=== PATIENT | female | born 1945 | race Caucasian/White ===

== ENCOUNTER 2020-10-02 16:14 | Inpatient (IN) | payer MEDICARE ==
[~2020-10-02] VITALS: Ht 157.5 cm; Wt 128.4 kg
[2020-10-02 18:45] VITALS: BP 152/69
[2020-10-02] MEDS ORDERED: MAALOX 30 ML SUSP *UDC PO PRN (19:15)
[2020-10-02] MEDS ORDERED: MOM 30ML SUSPENSION UDC PO PRN (19:15)
[2020-10-02] MEDS ORDERED: CRAN400C PO (19:18)
[2020-10-02] MEDS ORDERED: PROBCAP14 PO (19:18)
[2020-10-02] MEDS ORDERED: PENT500C PO (19:18)
[2020-10-02] MEDS ORDERED: B-12100010 PO (19:18)
[2020-10-02] MEDS ORDERED: DOCU100C16 PO (19:18)
[2020-10-02] MEDS ORDERED: NITR100C2 PO (19:18)
[2020-10-02] MEDS ORDERED: ASPI81TA26 PO (19:18)
[2020-10-02] MEDS ORDERED: AMLO2.5T3 PO (19:18)
[2020-10-02] MEDS ORDERED: LEVO75TA4 PO (19:18)
[2020-10-02] MEDS ORDERED: IRBE150T7 PO (19:29)
[2020-10-02] MEDS ORDERED: ACET-683 PO (19:29)
[2020-10-02] MEDS ORDERED: B-121TAB3 PO (19:29)
--- NOTE | 2020-10-02 19:56 | HPEPDOC ---
[facility] Medical History & Physical Date of Admission Oct 02, 2020 Date of Service: Oct 02, 2020 History and Physical CHIEF COMPLAINT: Abdominal pain HISTORY OF PRESENT ILLNESS: This is a 75-year-old female history of hypothyroidism, hypertension, Crohn's was transferred from [place] due to abdominal pain and small bowel obstruction seen on CT imaging. Patient tells me that for 3 days she had diarrhea for which she took Imodium. Her diarrhea resolved and then she developed mild 2 out of 10 abdominal pain for which she started to take stool softeners she was at her physician's office and when she went home 2 days ago she noticed periumbilical mild nonradiating intermittent abdominal pain which she rates as 2 out of 10. She felt this was new for her and she presented to [place] emergency department complaining of abdominal pain. It [place] CT imaging was obtained and verbal read was endorsed to us as having small bowel obstruction with junctional point. [place] requested to transfer the patient was for evaluation by surgery. At the time evaluation patient denies any abdominal pain she is seen and bleeding freely around her room in no distress. She tells me she had a bowel movement p rior to presenting to [place] this morning and has been passing gas freely since. Patient will be admitted for observation. PAST MEDICAL/SURGICAL HISTORY: Suspected Crohn's disease although she tells me her physician is unsure and suspects there might be a component of ulcerative colitis given her family history of UC Hypertension Hypothyroidism Hemorrhoids Recurrent urinary tract infections Diverticulosis Tonsillectomy Hysterectomy SOCIAL HISTORY: Endorses alcohol use only socially a few times a year Denies tobacco use currently, states she quit over 15 years ago Denies illicit drug use FAMILY HISTORY: Her daughter was diagnosed with ulcerative colitis Mother had multiple GI issues but she cannot specify which ALLERGIES: Please see below. REVIEW OF SYSTEMS: 10 point review of systems complete all negative otherwise stated in HPI HOME MEDICATIONS: Please see below. PHYSICAL EXAMINATION: Constitutional: Awake and alert, in no apparent distress, she is morbidly obese ENT: Sclera are clear. Mucosa is moist. Respiratory: Lungs breath sounds are diminished bilaterally difficult to appreciate due to her large body habitus. No respiratory distress. Cardiovascular: Heart sounds appear to be regular in rate and rhythm murmurs are difficult to appreciate due to her large body habitus Gastrointestinal: Abdomen is soft, obese, non tender to palpation in all 4 quadrants to light and deep palpation, BS present. Musculoskeletal: No lower extremity edema. Neurologic: No focal neurological deficit. Mental Status: A&O x3, normal affect Skin: Warm, dry LABORATORY DATA: See below. IMAGING: See chart MICROBIOLOGY: Please see below. ASSESSMENT/PLAN 75-year-old female transferred from [place] due to SBO seen on CT associated with abdominal pain. At this time patient is passing gas and abdominal pain is resolved. She'll be admitted for observation to the medical service. # Abdominal pain: Patient was transferred here for management of SBO. Unfortunately the CT scan from [place] was not transferred with the patient, verbal read to accepting physician was that SBO was seen on CT with transition point. Try to obtain official CT read in the morning. I will hold off on repeating imaging for now as patient looks to have improved. Abdominal pain is resolved. She tells me she had a bowel movement in the morning passing gas gas. She is freely ambulate around her room in no distress. No need for NG tube. Nothing by mouth until she has a bowel movement. No need for surgical consult at this time. Bowel regiment. # ?Crhons: Continue mesalamine. Follow-up with PCP. # Hypertension: Continue home meds. Monitor and titrate # Hypothyroidism: resume Synthroid. # DVT prophylaxis: Heparin A [facility]ist Vital Signs Vital Signs Date Time Temp Pulse Resp B/P (MAP) Pulse Ox O2 Delivery O2 Flow Rate FiO2 10/02/20 18:45 98.1 77 19 152/69 (96) 99 Nasal Cannula 2.0 Home Medications Scheduled Amlodipine Besylate (Amlodipine Besylate) 2.5 Mg Tablet, 2.5 MG PO BID Aspirin (Aspirin EC) 81 Mg Tablet.dr, 81 MG PO QHS Cranberry (Cranberry) 400 Mg Capsule, 400 MG PO BID Cyanocobalamin (Vitamin B-12) (B-12) 500 Mcg Tablet, 500 MCG PO QHS Docusate Sodium (Docusate Sodium) 100 Mg Capsule, 200 MG PO BID supper and bedtime Irbesartan (Irbesartan) 150 Mg Tablet, 150 MG PO QPM Lactobacillus Acidophilus (Probiotic) 1 Each Capsule, 1 CAP PO DAILY Levothyroxine Sodium (Levothyroxine Sodium) 75 Mcg Tablet, 75 MCG PO QAM Mesalamine (Pentasa) 500 Mg Capsule.er, 500 MG PO 3XW sun,wed,sun Nitrofurantoin Monohyd/M-Cryst (Nitrofurantoin [place]-Mcr 100 mg) 100 Mg Capsule, 100 MG PO 2XW sun,th Scheduled PRN Acetaminophen (Acetaminophen) 500 Mg Tablet, 1,000 MG PO BID PRN for PAIN Allergies Coded Allergies: TAPE (Verified Allergy, Intermediate, BREAKS OUT, 08/04/05) A-FIB/CHADSVASC A-FIB History Current/History of A-Fib/PAF?: No PRADEEP MOJICA MD Oct 02, 2020 19:56
[2020-10-02 19:58] VITALS: BP 150/87
[2020-10-02 19:58] LABS: HEMATOCRIT 43.7 % (36.0-47.0); HEMOGLOBIN 13.8 g/dl (12.0-15.5); MEAN CORPUSCULAR HEMOGLOBIN 29.9 pg (27.0-33.0); MEAN CORPUSCULAR HGB CONC 31.6 g/dl (32.0-36.5); MEAN CORPUSCULAR VOLUME 94.6 fl (80.0-96.0); PLATELET COUNT, AUTOMATED 234 10^3/uL (150-450); RED BLOOD COUNT 4.62 10^6/uL (4.00-5.40); WHITE BLOOD COUNT 7.9 10^3/uL (4.0-10.0)
[2020-10-02 20:26] LABS: ALBUMIN 3.4 GM/DL (3.2-5.2); ALT/SGPT 20 U/L (12-78); BILIRUBIN,TOTAL 0.6 MG/DL (0.2-1.0); BLOOD UREA NITROGEN 14 MG/DL (7-18); CALCIUM LEVEL 8.3 MG/DL (8.8-10.2); CARBON DIOXIDE LEVEL 32 MEQ/L (21-32); CHLORIDE LEVEL 108 MEQ/L (98-107); GLOMERULAR FILTRATION RATE > 60.0 (>39); GLUCOSE, FASTING 107 MG/DL (70-100); POTASSIUM SERUM 4.3 MEQ/L (3.5-5.1); SODIUM LEVEL 142 MEQ/L (136-145); TOTAL PROTEIN 6.1 GM/DL (6.4-8.2)
[2020-10-02] MEDS: ASPIRIN 81MG ENTERIC TABLET PO SCH (20:51)
[2020-10-02] MEDS: DOCUSATE SODIUM 100MG CAPSULE PO SCH (20:51)
[2020-10-02] MEDS: IRBESARTAN 150MG TAB PO SCH (20:51)
[2020-10-02] MEDS ORDERED: DOCUSATE SODIUM 100MG CAPSULE PO SCH (21:00)
[2020-10-02] MEDS: HEPARIN SOD (PORCINE) 5000UNITS/ML 1ML VIAL/SYRINGE SC SCH (21:33)
[2020-10-02] MEDS: ACETAMINOPHEN TAB 650MG DOSE (2X325MG) PO PRN (22:35)
[2020-10-03] MEDS: LEVOTHYROXINE 75MCG TABLET (0.075MG) PO SCH (06:02)
[2020-10-03 06:20] VITALS: BP 108/46
[2020-10-03 06:45] LABS: HEMATOCRIT 41.8 % (36.0-47.0); HEMOGLOBIN 12.8 g/dl (12.0-15.5); MEAN CORPUSCULAR HEMOGLOBIN 29.6 pg (27.0-33.0); MEAN CORPUSCULAR HGB CONC 30.6 g/dl (32.0-36.5); MEAN CORPUSCULAR VOLUME 96.8 fl (80.0-96.0); PLATELET COUNT, AUTOMATED 207 10^3/uL (150-450); RED BLOOD COUNT 4.32 10^6/uL (4.00-5.40); WHITE BLOOD COUNT 6.5 10^3/uL (4.0-10.0)
[2020-10-03 07:12] LABS: ALT/SGPT 18 U/L (12-78); BILIRUBIN,TOTAL 0.9 MG/DL (0.2-1.0); BLOOD UREA NITROGEN 13 MG/DL (7-18); CALCIUM LEVEL 8.2 MG/DL (8.8-10.2); CARBON DIOXIDE LEVEL 34 MEQ/L (21-32); CHLORIDE LEVEL 109 MEQ/L (98-107); CREATININE FOR GFR 0.86 MG/DL (0.55-1.30); GLOMERULAR FILTRATION RATE > 60.0 (>39); GLUCOSE, FASTING 94 MG/DL (70-100); MAGNESIUM LEVEL 2.2 MG/DL (1.8-2.4); POTASSIUM SERUM 4.5 MEQ/L (3.5-5.1); SODIUM LEVEL 142 MEQ/L (136-145); TOTAL PROTEIN 5.9 GM/DL (6.4-8.2)
[2020-10-03] MEDS: HEPARIN SOD (PORCINE) 5000UNITS/ML 1ML VIAL/SYRINGE SC SCH ×2 (08:45→21:50)
[2020-10-03] MEDS ORDERED: MESALAMINE 250 MG CR CAP PO SCH (09:00)
[2020-10-03] MEDS: MIRALAX *UNIT DOSE* 17GM PACKET PO PRN ×2 (12:38→12:39)
[2020-10-03 14:00] VITALS: BP 138/82
[2020-10-03] MEDS: IRBESARTAN 150MG TAB PO SCH (18:07)
[2020-10-03] MEDS: DOCUSATE SODIUM 100MG CAPSULE PO SCH ×3 (18:07→21:54)
--- NOTE | 2020-10-03 19:39 | IPNPDOC ---
Subjective Date Seen The patient was seen on 10/03/20. Subjective Chief Complaint/HPI Mrs. Randolph is a 75 year old female with IBD who was transferred from [facility] for abdominal pain and SBO seen on CT imaging. While here, she has not had abdominal pain, but some abdominal tenderness. Denies chest pain or dyspnea. She tolerated a clear liquid diet and advanced to full liquids. She has had a bowel movement. Objective Physical Examination General Exam: Positive: Alert, Cooperative Eye Exam: Positive: EOMI; Negative: Sclera icteric Neck Exam: Positive: Supple Chest Exam: Positive: Diminished Heart Exam: Positive: Rate Normal, Regular Rhythm Abdomen Exam: Positive: Normal bowel sounds, Soft, Other (Obese) Extremity Exam: Positive: Edema Neuro Exam: Positive: Normal Speech, Cranial Nerves 3-12 NL Psych Exam: Positive: Mental status NL, Mood NL Assessment /Plan Assessment Mrs. Randolph is a 75 year old female with IBD who was transferred from [facility] for abdominal pain and SBO seen on CT imaging. Her abdominal pain resolved and is tolerated a clear liquid diet. She had a bowel movement as well. Will try on a regular diet. If she does well, possible discharge tomorrow. She should follow up with general surgery for the hernia. Plan/VTE VTE Prophylaxis Ordered?: Yes Plan 1. SBO -Resolved. No abdominal pain or nausea. Tolerating liquid diet and had bowel movement. -Try Regular diet -Continue Colace and PRN Miralax 2. IBD -Patient report's Crohn's disease. Continue mesalamine 3. Hypertension -Continue amlodipine and irbesartan 4. Hypothyroidism -Continue levothyroxine 5. DVT ppx -Heparin Disposition: If tolerates solid diet and continues to have BM tomorrow, possible discharge tomorrow. VS, I&O, 24H, Fishbone Vital Signs/I&O Vital Signs Date Time Temp Pulse Resp B/P (MAP) Pulse Ox O2 Delivery O2 Flow Rate FiO2 10/03/20 18:07 138/82 10/03/20 14:00 97.6 70 17 97 Nasal Cannula 1.0 I&O- Last 24 Hours up to 6 AM 10/03/20 06:00 Intake Total 0 ml Output Total 50 ml Balance -50 ml Laboratory Data 24H LABS Laboratory Tests 2 10/02/20 19:48: Nucleated Red Blood Cells % (auto) 0.0, Anion Gap 2L, Glomerular Filtration Rate > 60.0, Calcium Level 8.3L, Total Bilirubin 0.6, Aspartate Amino Transf (AST/SGOT) 17, Alanine Aminotransferase (ALT/SGPT) 20, Alkaline Phosphatase 97, Total Protein 6.1L, Albumin 3.4, Albumin/Globulin Ratio 1.3 10/03/20 06:28: Nucleated Red Blood Cells % (auto) 0.0, Anion Gap , Glomerular Filtration Rate > 60.0, Calcium Level 8.2L, Total Bilirubin 0.9, Aspartate Amino Transf (AST/SGOT) 16, Alanine Aminotransferase (ALT/SGPT) 18, Alkaline Phosphatase 81, Total P rotein 5.9L, Albumin 3.0L, Albumin/Globulin Ratio 1.0L, Magnesium Level 2.2 CBC/BMP Laboratory Tests 10/02/20 19:48 10/03/20 06:28 HAJA AMADOR DO Oct 03, 2020 19:39
[2020-10-03] MEDS: ASPIRIN 81MG ENTERIC TABLET PO SCH (21:50)
[2020-10-03 22:00] VITALS: BP 122/68
[2020-10-04] MEDS: ACETAMINOPHEN TAB 650MG DOSE (2X325MG) PO PRN ×2 (00:32→08:27)
[2020-10-04] MEDS: LEVOTHYROXINE 75MCG TABLET (0.075MG) PO SCH (05:58)
[2020-10-04 06:00] VITALS: BP 131/72
[2020-10-04] MEDS: HEPARIN SOD (PORCINE) 5000UNITS/ML 1ML VIAL/SYRINGE SC SCH (08:26)
[2020-10-04 08:27] VITALS: BP 133/71
[2020-10-04 08:31] LABS: HEMATOCRIT 41.3 % (36.0-47.0); HEMOGLOBIN 12.9 g/dl (12.0-15.5); MEAN CORPUSCULAR HEMOGLOBIN 30.1 pg (27.0-33.0); MEAN CORPUSCULAR HGB CONC 31.2 g/dl (32.0-36.5); MEAN CORPUSCULAR VOLUME 96.3 fl (80.0-96.0); PLATELET COUNT, AUTOMATED 200 10^3/uL (150-450); RED BLOOD COUNT 4.29 10^6/uL (4.00-5.40); WHITE BLOOD COUNT 5.4 10^3/uL (4.0-10.0)
[2020-10-04 08:54] LABS: BLOOD UREA NITROGEN 12 MG/DL (7-18); CALCIUM LEVEL 8.4 MG/DL (8.8-10.2); CARBON DIOXIDE LEVEL 35 MEQ/L (21-32); CHLORIDE LEVEL 105 MEQ/L (98-107); CREATININE FOR GFR 0.76 MG/DL (0.55-1.30); GLOMERULAR FILTRATION RATE > 60.0 (>39); GLUCOSE, FASTING 89 MG/DL (70-100); POTASSIUM SERUM 4.2 MEQ/L (3.5-5.1); SODIUM LEVEL 142 MEQ/L (136-145)
--- NOTE | 2020-10-04 22:43 | DS.PDOC ---
Discharge Summary General Date of Admission Oct 02, 2020 at 18:40 Date of Discharge Oct 04, 2020 Discharge Summary PROCEDURES PERFORMED DURING STAY: [None]. ADMITTING DIAGNOSES: 1. . DISCHARGE DIAGNOSES: 1. . COMPLICATIONS/CHIEF COMPLAINT: Partial Small Bowel Obstruction. HISTORY OF PRESENT ILLNESS: . HOSPITAL COURSE: . DISCHARGE MEDICATIONS: Please see below. ALLERGIES: Please see below. PHYSICAL EXAMINATION ON DISCHARGE: VITAL SIGNS: Please see below. GENERAL: HEENT: NECK: CARDIOVASCULAR EXAMINATION: RESPIRATORY EXAMINATION: ABDOMINAL EXAMINATION: EXTREMITIES: SKIN: NEUROLOGICAL EXAMINATION: PSYCHIATRIC EXAMINATION: LABORATORY DATA: Please see below. IMAGING: PROGNOSIS: ACTIVITY: [As tolerated]. DIET: DISCHARGE PLAN: DISPOSITION: Home, Self-Care. DISCHARGE INSTRUCTIONS: 1. . ITEMS TO FOLLOWUP ON ON OUTPATIENT: 1. . DISCHARGE CONDITION: [Stable]. TIME SPENT ON DISCHARGE: Greater than minutes. Vital Signs/I&Os Vital Signs Date Time Temp Pulse Resp B/P (MAP) Pulse Ox O2 Delivery O2 Flow Rate FiO2 10/04/20 08:27 65 133/71 10/04/20 06:00 98.5 18 96 Nasal Cannula 2.0 I&O- Last 24 Hours up to 6 AM 10/04/20 06:00 Intake Total 2440 ml Output Total 650 ml Balance 1790 ml Laboratory Data Labs 24H Laboratory Tests 2 10/04/20 08:06: Nucleated Red Blood Cells % (auto) 0.0, Anion Gap 2L, Glomerular Filtration Rate > 60.0, Calcium Level 8.4L CBC/BMP Laboratory Tests 10/04/20 08:06 Discharge Medications Scheduled Amlodipine Besylate (Amlodipine Besylate) 2.5 Mg Tablet, 2.5 MG PO BID, (Reported) Aspirin (Aspirin EC) 81 Mg Tablet.dr, 81 MG PO QHS, (Reported) Cranberry (Cranberry) 400 Mg Capsule, 400 MG PO BID, (Reported) Cyanocobalamin (Vitamin B-12) (B-12) 500 Mcg Tablet, 500 MCG PO QHS, (Reported) Docusate Sodium (Docusate Sodium) 100 Mg Capsule, 200 MG PO BID, (Reported) supper and bedtime Irbesartan (Irbesartan) 150 Mg Tablet, 150 MG PO QPM, (Reported) Lactobacillus Acidophilus (Probiotic) 1 Each Capsule, 1 CAP PO DAILY, (Reported) Levothyroxine Sodium (Levothyroxine Sodium) 75 Mcg Tablet, 75 MCG PO QAM, (Reported) Mesalamine (Pentasa) 500 Mg Capsule.er, 500 MG PO 3XW, (Reported) sun,sun,sun Nitrofurantoin Monohyd/M-Cryst (Nitrofurantoin [place]-Mcr 100 mg) 100 Mg Capsule, 100 MG PO 2XW, (Reported) sun, Scheduled PRN Acetaminophen (Acetaminophen) 500 Mg Tablet, 1,000 MG PO BID PRN for PAIN, (Reported) Allergies Coded Allergies: TAPE (Verified Allergy, Intermediate, BREAKS OUT, 08/04/05) HAJA AMADOR DO Oct 04, 2020 22:43
== END 2020-10-04 12:25 | disposition home or self-care (01) | DRG 390 ==
LOC: M MS5PR 18:40
PROVIDERS: ADMIT Internal Medicine; ATTEND Internal Medicine
DX: K56.609 Unspecified intestinal obstruction, unspecified as to partial versus complete obstruction (principal); Z79.82 Long term (current) use of aspirin; Z79.899 Other long term (current) drug therapy; E03.9 Hypothyroidism, unspecified; I10 Essential (primary) hypertension; K64.8 Other hemorrhoids; K57.30 Diverticulosis of large intestine without perforation or abscess without bleeding; Z87.891 Personal history of nicotine dependence

== ENCOUNTER 2020-10-25 10:53 | Inpatient (IN) | payer MEDICARE ==
[~2020-10-25] VITALS: Ht 157.5 cm; Wt 128.4 kg
[~2020-10-25 10:53] MED LIST: ACET-683 PO; AMLO2.5T3 PO; ASPI81TA26 PO; B-12100010 PO; B-121TAB3 PO; CRAN400C PO; DOCU100C16 PO; IRBE150T7 PO; LEVO75TA4 PO; NITR100C2 PO; PENT500C PO; PROBCAP14 PO
[2020-10-25 11:51] LABS: BASO # 0.1 10^3/uL (0.0-0.2); BASO % 0.8 % (0.0-1.0); EOS # 0.1 10^3/uL (0.0-0.5); HEMATOCRIT 45.7 % (36.0-47.0); HEMOGLOBIN 14.3 g/dl (12.0-15.5); LYMPH # 0.8 10^3/uL (1.5-5.0); LYMPH % 10.4 % (24.0-44.0); MEAN CORPUSCULAR HEMOGLOBIN 29.7 pg (27.0-33.0); MEAN CORPUSCULAR HGB CONC 31.3 g/dl (32.0-36.5); MEAN CORPUSCULAR VOLUME 94.8 fl (80.0-96.0); MONO # 0.4 10^3/uL (0.0-0.8); MONO % 4.8 % (2.0-8.0); NEUTROPHILS # 6.6 10^3/uL (1.5-8.5); NEUTROPHILS % 82.6 % (36.0-66.0); PLATELET COUNT, AUTOMATED 245 10^3/uL (150-450); RED BLOOD COUNT 4.82 10^6/uL (4.00-5.40)
[2020-10-25 12:09] LABS: INR 1.07; PROTHROMBIN TIME 14.1 SECONDS (12.5-14.3)
[2020-10-25 12:10] LABS: ALBUMIN 3.6 GM/DL (3.2-5.2); ALT/SGPT 20 U/L (12-78); BILIRUBIN,DIRECT 0.2 MG/DL (0.0-0.2); BILIRUBIN,TOTAL 0.7 MG/DL (0.2-1.0); LIPASE 71 U/L (73-393); PARTIAL THROMBOPLASTIN TIME 25.2 SECONDS (24.2-38.5); TOTAL PROTEIN 6.7 GM/DL (6.4-8.2)
[2020-10-25 12:46] LABS: CK-MB VALUE MASS 1.6 NG/ML (<3.6); CPK CREATINE PHOSPHOKINASE 84 U/L (26-192); TROPONIN I < 0.02 NG/ML (< 0.10)
[2020-10-25] MEDS: GASTROGRAFIN SOLUTION 30ML PO SCH ×2 (13:23→14:19)
[2020-10-25] MEDS ORDERED: ISOVUE-370 76% 100ML VIAL As Ordered ONE (14:08)
--- NOTE | 2020-10-25 15:44 | REP ---
INDICATION: upper abd pain hx Crohns COMPARISON: 04/13/2011. TECHNIQUE: CT Scan of the abdomen and pelvis was performed with intravenous administration of 100 cc of Isovue 370, and oral contrast. FINDINGS: Lung bases: There is mild bibasilar fibrotic scarring. There is a small hiatal hernia. Liver: Normal Gallbladder: Unremarkable. Spleen: Normal. Adrenals: There is chronic left adrenal gland thickening.. Pancreas: Normal. Kidneys: There is a 1 cm calculus in the right renal pelvis without evidence of there is an 8 mm nodule in the mid right kidney anteriorly consistent with an angiomyolipoma. Small and large bowel: There is umbilical hernia containing a loop of small bowel. There is edema surrounding the hernia sac. There is small-bowel obstruction at this point with moderate dilatation of the small bowel proximal to this. There is likely incarceration and I cannot exclude strangulation. There is no free air. There is sigmoid diverticulosis. Free fluid: There is mild scattered free fluid in the abdomen and pelvis. Abdominal aorta: No aneurysm or dissection. Adenopathy: None. Appendix: Not inflamed. Osseous structures: There are degenerative changes of the spine without compression deformity. Pelvis: No mass. Prior hysterectomy. IMPRESSION: Umbilical hernia containing a loop of small bowel, with small bowel obstruction at this level. There is likely incarceration of the small bowel loop and I cannot exclude strangulation, with moderate edema surrounding the hernia sac. Mild scattered free fluid. No free air. 1 cm calculus right renal pelvis. No hydronephrosis bilaterally. <Electronically signed by Zackary Martins > 10/25/20 [id number]
[2020-10-25] MEDS: NS 1,000 ML IV SCH (16:05)
[2020-10-25] MEDS ORDERED: POLYOPD OU (16:05)
[2020-10-25] MEDS ORDERED: FLON1SPR NARES (16:05)
--- NOTE | 2020-10-25 16:23 | HPEPDOC ---
[facility] Medical History & Physical Date of Admission October 25, 2020 Date of Service: October 25, 2020 History and Physical CHIEF COMPLAINT: Abdominal pain HISTORY OF PRESENT ILLNESS: 75F presents for one day history of worsening abd ominal pain. She was admitted about three weeks ago as a transfer from an outside facility for a SBO, which resolved with medical management. Today she describes epigastric pain, nausea, no vomiting, no diarrhea. PAST MEDICAL HISTORY: 1. Small bowel obstruction 2. Crohn's disease 3. Hypertension 4. Hypothyroidism ALLERGIES: Please see below. REVIEW OF SYSTEMS: Negative except as per HPI. HOME MEDICATIONS: Please see below. PHYSICAL EXAMINATION: VITAL SIGNS: Please see below. GENERAL: NAD, sitting comfortably at edge of bed HEENT: NC/AT, EOMI Lungs; CTA B/L Heart: +S1S2, RRR Abd: soft, obese, NT, hypoactive bowel sounds Ext: trace peripheral edema LABORATORY DATA: See below. MICROBIOLOGY: Please see below. A/P: 75 yo female for abdominal pain, found to have incarcerated small bowel obstruction. #SBO - case discussed with surgery by ED for further management - follow as per surgery #Crohn's disease - further complicated with SBO - follow as per surgery - home meds - pentasa 3 week; bactrim 2 x week #HTN - continue home meds - norvasc, avapro #Hypothyroidism - continue with oral supplementation #DVT prophylaxis - mechanical prophylaxis Vital Signs Vital Signs Date Time Temp Pulse Resp B/P (MAP) Pulse Ox O2 Delivery O2 Flow Rate FiO2 10/25/20 13:45 174/95 (121) 10/25/20 13:38 70 97 10/25/20 11:00 98.2 18 Laboratory Data Labs 24H Laboratory Tests 2 10/25/20 11:26: Immature Granulocyte % (Auto) 0.4, Neutrophils (%) (Auto) 82.6H, Lymphocytes (%) (Auto) 10.4L, Monocytes (%) (Auto) 4.8, Eosinophils (%) (Auto) 1.0, Basophils (%) (Auto) 0.8, Neutrophils # (Auto) 6.6, Lymphocytes # (Auto) 0.8L, Monocytes # (Auto) 0.4, Eosinophils # (Auto) 0.1, Basophils # (Auto) 0.1, Nucleated Red Blood Cells % (auto) 0.0, Prothrombin Time 14.1H, Prothromb Time International Ratio 1.07, Activated Partial Thromboplast Time 25.2, Lactic Acid Level 1.5, Total Bilirubin 0.7, Direct Bilirubin 0.2, Aspartate Amino Transf (AST/SGOT) 11, Alanine Aminotransferase (ALT/SGPT) 20, Alkaline Phosphatase 99, Total Creatine Kinase 84, Creatine Kinase MB 1.6, Creatine Kinase MB Relative Index 1.90, Troponin I < 0.02, Total Protein 6.7, Albumin 3.6, Albumin/Globulin Ratio 1.2, Lipase 71L 10/25/20 11:38: POC Glucose (Misc Panel) 108H, POC Sodium (Misc Panel) 142, POC Potassium (Misc Panel) 4.0, POC Chloride (Misc Panel) 104, POC Total CO2 (Misc Panel) 30.0H, POC Blood Urea Nitrogen (Misc Panel 20, POC Ionized Calcium (Misc Panel) 4.9, POC Creatinine (Misc Panel) 1.0, POC Hematocrit (Misc Panel) 44.0 CBC/BMP Laboratory Tests 10/25/20 11:26 Home Medications Scheduled Amlodipine Besylate (Amlodipine Besylate) 2.5 Mg Tablet, 2.5 MG PO BID Aspirin (Aspirin EC) 81 Mg Tablet.dr, 81 MG PO QHS Cranberry (Cranberry) 400 Mg Capsule, 400 MG PO BID Cyanocobalamin (Vitamin B-12) (B-12) 500 Mcg Tablet, 500 MCG PO DAILY Docusate Sodium (Docusate Sodium) 100 Mg Capsule, 200 MG PO BID supper and bedtime Fluticasone Propionate (Flonase Allergy Relief) 9.9 Ml [place].susp, 1 SPRAY [place]ARES QHS Irbesartan (Irbesartan) 150 Mg Tablet, 150 MG PO QPM Lactobacillus Acidophilus (Probiotic) 1 Each Capsule, 1 CAP PO DAILY Levothyroxine Sodium (Levothyroxine Sodium) 75 Mcg Tablet, 75 MCG PO QAM Mesalamine (Pentasa) 500 Mg Capsule.er, 500 MG PO 3XW sun,wed,fri Nitrofurantoin Monohyd/M-Cryst (Nitrofurantoin [place]-Mcr 100 mg) 100 Mg Capsule, 100 MG PO 2XW sun,thurs Scheduled PRN Acetaminophen (Acetaminophen) 500 Mg Tablet, 1,000 MG PO BID PRN for PAIN Polyvinyl Alcohol (Artificial Tears) 15 Ml Drops, 1 DROP OU QID PRN for DRY EYES Allergies Coded Allergies: TAPE (Verified Allergy, Intermediate, BREAKS OUT, 08/04/05) A-FIB/CHADSVASC A-FIB History Current/History of A-Fib/PAF?: No JORGE HILARIO MD October 25, 2020 16:23
[2020-10-25 19:15] LABS: RSV AMPLIFICATION NEGATIVE (NEGATIVE)
[2020-10-25] MEDS ORDERED: LABETALOL 100MG/20ML VIAL IV STA (19:34)
[2020-10-25] MEDS ORDERED: MORPHINE 2 MG/ML 1ML VIAL (J2270) IV ONE (19:35)
--- NOTE | 2020-10-25 19:45 | ECGEPIP ---
[facility] - ED Test Date: 2020-10-25 Pat Name: MICHAEL JORDAN Department: Room: - Gender: Female Ela Teacher: adelso : 1945 Requested By: PETE Calles Order Number: [id number] Reading MD: Pamela Ramsey Measurements Intervals [place] Rate: 64 P: -3 IN: 132 QRS: 1 QRSD: 84 T: 72 QT: 422 QTc: 435 Interpretive Statements Sinus rhythm with premature atrial complexes Nonspecific ST T wave changes Delayed R wave progression No prior ECG for comparison Electronically Signed on 10-25-2020 19:45:33 EDT by Pamela Ramsey
[2020-10-25] MEDS ORDERED: ONDANSETRON 4MG/2ML VIAL IV PRN (20:00)
[2020-10-25 20:03] LABS: BASO % 0.4 % (0.0-1.0); EOS # 0.1 10^3/uL (0.0-0.5); EOS % 0.6 % (0.0-3.0); HEMATOCRIT 48.4 % (36.0-47.0); HEMOGLOBIN 15.4 g/dl (12.0-15.5); LYMPH # 0.9 10^3/uL (1.5-5.0); LYMPH % 8.8 % (24.0-44.0); MEAN CORPUSCULAR HGB CONC 31.8 g/dl (32.0-36.5); MEAN CORPUSCULAR VOLUME 94.2 fl (80.0-96.0); MONO # 0.4 10^3/uL (0.0-0.8); MONO % 4.3 % (2.0-8.0); NEUTROPHILS # 8.7 10^3/uL (1.5-8.5); NEUTROPHILS % 85.5 % (36.0-66.0); PLATELET COUNT, AUTOMATED 258 10^3/uL (150-450); RED BLOOD COUNT 5.14 10^6/uL (4.00-5.40); WHITE BLOOD COUNT 10.2 10^3/uL (4.0-10.0)
[2020-10-25 20:30] LABS: ALBUMIN 3.7 GM/DL (3.2-5.2); ALT/SGPT 20 U/L (12-78); BILIRUBIN,TOTAL 0.8 MG/DL (0.2-1.0); BLOOD UREA NITROGEN 17 MG/DL (7-18); CALCIUM LEVEL 9.1 MG/DL (8.8-10.2); CARBON DIOXIDE LEVEL 31 MEQ/L (21-32); CHLORIDE LEVEL 107 MEQ/L (98-107); CREATININE FOR GFR 0.86 MG/DL (0.55-1.30); GLOMERULAR FILTRATION RATE > 60.0 (>39); GLUCOSE, FASTING 118 MG/DL (70-100); POTASSIUM SERUM 4.6 MEQ/L (3.5-5.1); SODIUM LEVEL 140 MEQ/L (136-145); TOTAL PROTEIN 6.7 GM/DL (6.4-8.2)
[2020-10-25] MEDS: DOCUSATE SODIUM 100MG CAPSULE PO SCH (21:00)
[2020-10-26] MEDS: ASPIRIN 81MG ENTERIC TABLET PO SCH ×2 (00:17→21:18)
[2020-10-26] MEDS: DOCUSATE SODIUM 100MG CAPSULE PO SCH ×3 (00:17→21:17)
[2020-10-26] MEDS: IRBESARTAN 150MG TAB PO SCH ×2 (00:17→17:37)
[2020-10-26] MEDS: FLUTICASONE PROP 0.05% NASAL SPRAY 16 GM (FLONASE) NARES SCH ×2 (00:18→21:18)
[2020-10-26] MEDS: NS 1,000 ML IV SCH ×3 (02:05→21:17)
[2020-10-26 06:49] LABS: HEMATOCRIT 45.5 % (36.0-47.0); HEMOGLOBIN 14.1 g/dl (12.0-15.5); MEAN CORPUSCULAR HEMOGLOBIN 30.1 pg (27.0-33.0); MEAN CORPUSCULAR VOLUME 97.2 fl (80.0-96.0); PLATELET COUNT, AUTOMATED 240 10^3/uL (150-450); RED BLOOD COUNT 4.68 10^6/uL (4.00-5.40); WHITE BLOOD COUNT 8.1 10^3/uL (4.0-10.0)
[2020-10-26 07:05] LABS: ALBUMIN 3.3 GM/DL (3.2-5.2); ALT/SGPT 19 U/L (12-78); BILIRUBIN,TOTAL 0.9 MG/DL (0.2-1.0); BLOOD UREA NITROGEN 15 MG/DL (7-18); CALCIUM LEVEL 8.7 MG/DL (8.8-10.2); CARBON DIOXIDE LEVEL 33 MEQ/L (21-32); CHLORIDE LEVEL 106 MEQ/L (98-107); CREATININE FOR GFR 0.81 MG/DL (0.55-1.30); GLOMERULAR FILTRATION RATE > 60.0 (>39); GLUCOSE, FASTING 104 MG/DL (70-100); POTASSIUM SERUM 4.4 MEQ/L (3.5-5.1); SODIUM LEVEL 142 MEQ/L (136-145); TOTAL PROTEIN 6.3 GM/DL (6.4-8.2)
[2020-10-26 08:00] VITALS: BP 176/70
[2020-10-26] MEDS: CYANOCOBALAMIN 500 MCG TAB PO SCH (09:22)
--- NOTE | 2020-10-26 09:22 | REP ---
INDICATION: upright, r/o free air COMPARISON: None. TECHNIQUE: PA/Lateral FINDINGS: Lungs: Clear, no infiltrate. Heart: Normal in size. Mediastinum: There is calcification of the thoracic aorta. Pleural angles: Unremarkable.. Bones and soft tissues: There is osteopenia with mild degenerative change of the spine. A nasogastric tube traverses into the stomach. IMPRESSION: No acute pulmonary disease. <Electronically signed by Zackary Martins > 10/26/20 0918
[2020-10-26] MEDS: LEVOTHYROXINE 75MCG TABLET (0.075MG) PO SCH (09:25)
[2020-10-26] MEDS ORDERED: CALCIUM CARBONATE 500 MG CHEW U/D PO PRN (09:35)
[2020-10-26] MEDS: PANTOPRAZOLE 40MG VIAL (C9113 PER 1) IV SCH (10:02)
[2020-10-26 12:07] VITALS: BP 158/78
--- NOTE | 2020-10-26 12:47 | CR.PDOC ---
General Surgery Consultation Date of Consultation 10/26/20 History and Physical General Surgery. Dr Lu. HISTORY OF PRESENT ILLNESS: The patient is a 75 old female with recent admission for SBO 10/02/20 which resolved with medical management, who presented to the emergency room reporting a 1 day history of worsening abdominal pain. She reports having pain across the upper abdomen associated with nausea, denies any vomiting. Reports no diarrhea. Reports having a small bowel movement yesterday. None so far today. General surgery is consulted for management of SBO. PAST MEDICAL HISTORY: H/O Small bowel obstruction with recent admission 10/02/20 Crohn's disease, follows with [facility]. Hypertension Hypothyroidism Hemorrhoids Recurrent UTI Diverticulosis PAST SURGICAL HISTORY: Tonsillectomy Hysterectomy ALLERGIES: Please see below. Social history. Former smoker REVIEW OF SYSTEMS: As noted in HPI otherwise 10 point review of systems unremarkable. PHYSICAL EXAMINATION: VITALS SIGNS: Please see below. GENERAL APPEARANCE: Lying on stretcher in ER, no acute distress. HEENT: Normocephalic, atraumatic. NG tube in place. NECK: Supple, no thyromegaly. LUNGS: Clear to auscultation bilaterally. No wheezing appreciated. HEART: Regular rate and rhythm with no murmurs appreciated. ABDOMEN: Abdomen is obese with large umbilical hernia, soft, generally distended with mild tenderness across the upper abdomen, no guarding, no rebound. No grimacing with palpation. EXTREMITIES: trace edema LEs LABORATORY DATA: Please see below. IMAGING STUDIES: IMPRESSION: Umbilical hernia containing a loop of small bowel, with small bowel obstruction at this level. There is likely incarceration of the small bowel loop and I cannot exclude strangulation, with moderate edema surrounding the hernia sac. Mild scattered free fluid. No free air. 1 cm calculus right renal pelvis. No hydronephrosis bilaterally. <Electronically signed by Zackary Martins > 10/25/20 1540 IMPRESSION AND PLAN: Large Umbilical hernia with SBO. Patient is reviewed and examined as per Dr. Lu. No surgical intervention planned at this time, will continue with supportive care. The patient is currently comfortable and states pain is controlled. Continue NPO. Continue NGT LIS. Continue IVF. Monitor. Vital Signs Vital Signs Date Time Temp Pulse Resp B/P (MAP) Pulse Ox O2 Delivery O2 Flow Rate FiO2 10/26/20 12:07 96.2 61 22 158/78 (104) 99 Nasal Cannula 2.0 I&Os I&O- Last 24 Hours up to 6 AM 10/26/20 06:00 Intake Total 1000 ml Balance 1000 ml Laboratory Data Labs 24H Laboratory Tests 2 10/25/20 18:24: Coronavirus (COVID-19)(PCR) NEGATIVE, Influenza Type A (RT-PCR) NEGATIVE, Influenza Type B (RT-PCR) NEGATIVE, Respiratory Syncytial Virus (PCR) NEGATIVE 10/25/20 19:49: Immature Granulocyte % (Auto) 0.4, Neutrophils (%) (Auto) 85.5H, Lymphocytes (%) (Auto) 8.8L, Monocytes (%) (Auto) 4.3, Eosinophils (%) (Auto) 0.6, Basophils (%) (Auto) 0.4, Neutrophils # (Auto) 8.7H, Lymphocytes # (Auto) 0.9L, Monocytes # (Auto) 0.4, Eosinophils # (Auto) 0.1, Basophils # (Auto) 0.0, Nucleated Red Blood Cells % (auto) 0.0, Anion Gap 2L, Glomerular Filtration Rate > 60.0, Lactic Acid Level 0.9, Calcium Level 9.1, Total Bilirubin 0.8, Aspartate Amino Transf (AST/SGOT) 13, Alanine Aminotransferase (ALT/SGPT) 20, Alkaline Phosphatase 100, Total Protein 6.7, Albumin 3.7, Albumin/Globulin Ratio 1.2 10/26/20 06:29: Nucleated Red Blood Cells % (auto) 0.0, Anion Gap 3L, Glomerular Filtration Rate > 60.0, Calcium Level 8.7L, Total Bilirubin 0.9, Aspartate Amino Transf (AST/SGOT) 12, Alanine Aminotransferase (ALT/SGPT) 19, Alkaline Phosphatase 81, Total Protein 6.3L, Albumin 3.3, Albumin/Globulin Ratio 1.1L CBC/BMP Laboratory Tests 10/25/20 19:49 10/26/20 06:29 Home Medications Scheduled Amlodipine Besylate (Amlodipine Besylate) 2.5 Mg Tablet, 2.5 MG PO BID, ( Reported) Aspirin (Aspirin EC) 81 Mg Tablet.dr, 81 MG PO QHS, (Reported) Cranberry (Cranberry) 400 Mg Capsule, 400 MG PO BID, (Reported) Cyanocobalamin (Vitamin B-12) (B-12) 500 Mcg Tablet, 500 MCG PO DAILY, (Reported) Docusate Sodium (Docusate Sodium) 100 Mg Capsule, 200 MG PO BID, (Reported) supper and bedtime Fluticasone Propionate (Flonase Allergy Relief) 9.9 Ml [place].susp, 1 SPRAY [place]ARES QHS, (Reported) Irbesartan (Irbesartan) 150 Mg Tablet, 150 MG PO QPM, (Reported) Lactobacillus Acidophilus (Probiotic) 1 Each Capsule, 1 CAP PO DAILY, (Reported) Levothyroxine Sodium (Levothyroxine Sodium) 75 Mcg Tablet, 75 MCG PO QAM, (Reported) Mesalamine (Pentasa) 500 Mg Capsule.er, 500 MG PO 3XW, (Reported) sun,sun,sun Nitrofurantoin Monohyd/M-Cryst (Nitrofurantoin [place]-Mcr 100 mg) 100 Mg Capsule, 100 MG PO 2XW, (Reported) sun, Scheduled PRN Acetaminophen (Acetaminophen) 500 Mg Tablet, 1,000 MG PO BID PRN for PAIN, (Reported) Polyvinyl Alcohol (Artificial Tears) 15 Ml Drops, 1 DROP OU QID PRN for DRY EYES, (Reported) Allergies Coded Allergies: TAPE (Verified Allergy, Intermediate, BREAKS OUT, 08/04/05) Kisha Valdez October 26, 2020 12:47
[2020-10-26 13:00] VITALS: BP 154/79
[2020-10-26 22:00] VITALS: BP 151/82
--- NOTE | 2020-10-26 22:36 | IPNPDOC ---
Subjective Date Seen The patient was seen on 10/26/20. Subjective Chief Complaint/HPI Mrs. Randolph is a 75 year old female with Crohn's disease and history of SBO who presents with SBO. She was seen this morning in the ED. Denies chest pain, but reports abdominal pain that has improved since prior. NGT still in place. General surgery following and recommendations appreciated. Objective Physical Examination General Exam: Positive: Alert, Cooperative Eye Exam: Negative: Sclera icteric ENT Exam: Positive: Other ENT (NTG in place) Neck Exam: Positive: Supple Chest Exam: Positive: Clear to auscultation Heart Exam: Positive: Rate Normal, Regular Rhythm Abdomen Exam: Positive: BS Hypoactive, Soft, Tenderness Extremity Exam: Positive: Edema (trace) Neuro Exam: Positive: Normal Speech Psych Exam: Positive: Mental status NL, Mood NL Assessment /Plan Assessment Mrs. Randolph is a 75 year old female with Crohn's disease and history of SBO who presents with SBO. General surgery following, recommendations appreciated. Continue with NGT at this time. Plan/VTE VTE Prophylaxis Ordered?: Yes Plan 1. Small bowel obstruction -Imaging demonstrated umbilical hernia continuing a loop of small bowel -General surgery following, recommendations appreciated -Continue with NTG 2. Crohn's disease -Continue with Pentasa and Nitrofurantoin x2 a week -Will check inflammatory markers 3. Hypertension -Continue with amlodipine and irbesartan 4. Hypothyroidism -Continue with levothyroxine 5. DVT ppx -SCD and TEDs Disposition: pending clinical improvement VS, I&O, 24H, Fishbone Vital Signs/I&O Vital Signs Date Time Temp Pulse Resp B/P (MAP) Pulse Ox O2 Delivery O2 Flow Rate FiO2 10/26/20 22:00 98.4 62 18 151/82 (105) 97 Nasal Cannula 2.0 I&O- Last 24 Hours up to 6 AM 10/26/20 06:00 Intake Total 1000 ml Balance 1000 ml Laboratory Data 24H LABS Laboratory Tests 2 10/26/20 06:29: Nucleated Red Blood Cells % (auto) 0.0, Anion Gap 3L, Glomerular Filtration Rate > 60.0, Calcium Level 8.7L, Total Bilirubin 0.9, Aspartate Amino Transf (AST/SGOT) 12, Alanine Aminotransferase (ALT/SGPT) 19, Alkaline Phosphatase 81, Total Protein 6.3L, Albumin 3.3, Albumin/Globulin Ratio 1.1L CBC/BMP Laboratory Tests 10/26/20 06:29 HAJA AMADOR DO October 26, 2020 22:36
[2020-10-27] MEDS: LEVOTHYROXINE 75MCG TABLET (0.075MG) PO SCH (05:02)
[2020-10-27] MEDS: NS 1,000 ML IV SCH ×3 (05:03→22:12)
[2020-10-27 06:00] VITALS: BP 139/68
[2020-10-27 06:53] LABS: HEMATOCRIT 43.1 % (36.0-47.0); HEMOGLOBIN 13.3 g/dl (12.0-15.5); MEAN CORPUSCULAR HEMOGLOBIN 30.3 pg (27.0-33.0); MEAN CORPUSCULAR HGB CONC 30.9 g/dl (32.0-36.5); MEAN CORPUSCULAR VOLUME 98.2 fl (80.0-96.0); PLATELET COUNT, AUTOMATED 207 10^3/uL (150-450); RED BLOOD COUNT 4.39 10^6/uL (4.00-5.40)
[2020-10-27 07:20] LABS: ERYTHROCYTE SEDIMENTATION RATE 6 mm/hr (0-30)
[2020-10-27 07:22] LABS: BLOOD UREA NITROGEN 10 MG/DL (7-18); C REACTIVE PROTEIN QUANTITATIV 2.79 MG/DL (0.00-0.30); CARBON DIOXIDE LEVEL 33 MEQ/L (21-32); CHLORIDE LEVEL 107 MEQ/L (98-107); CREATININE FOR GFR 0.66 MG/DL (0.55-1.30); GLOMERULAR FILTRATION RATE > 60.0 (>39); GLUCOSE, FASTING 83 MG/DL (70-100); SODIUM LEVEL 142 MEQ/L (136-145)
--- NOTE | 2020-10-27 09:38 | IPNPDOC ---
Text Note Date of Service The patient was seen on 10/27/20. NOTE General Surgery. Dr Lu. The patient is a 75 old female with recent admission for SBO 10/02/20 which resolved with medical management, who presented to the emergency room with worsening abdominal pain and admitted with recurrent SBO. This a.m., the patient states she is still feeling bloated, she still has some pain around the mid abdomen area about the same as yesterday. She reports no nausea, denies any flatus. States she had a small bowel movement last evening. Afebrile, vital signs stable. Resting in bed, no acute distress. NG tube in place. LUNGS: Clear to auscultation bilaterally. No wheezing appreciated. HEART: Regular rate and rhythm with no murmurs appreciated. ABDOMEN: Abdomen is obese with large umbilical hernia which is difficult to tell if this is reduced, remains generally distended with tenderness over the hernia area, no guarding, no rebound. EXTREMITIES: trace edema LEs LABORATORY DATA: Please see below. IMPRESSION AND PLAN: Large Umbilical hernia with SBO. Patient is reviewed and examined as per Dr. Escalona this morning. Continue NPO. Continue NGT LIS. Continue IVF. Plan is for CT abdomen/pelvis without contrast to reevaluate this morning, further recommendations pending review of imaging as per Dr. Escalona. Monitor. VS,Fishbone, I+O VS, Fishbone, I+O Laboratory Tests 10/27/20 06:13 Vital Signs Date Time Temp Pulse Resp B/P (MAP) Pulse Ox O2 Delivery O2 Flow Rate FiO2 10/27/20 06:00 98.5 70 18 139/68 (91) 98 Nasal Cannula 2.0 I&O- Last 24 Hours up to 6 AM 10/27/20 06:00 Intake Total 600 ml Output Total 1650 ml Balance -1050 ml Kisha Valdez October 27, 2020 09:38
[2020-10-27] MEDS: PANTOPRAZOLE 40MG VIAL (C9113 PER 1) IV SCH (10:07)
[2020-10-27] MEDS: CYANOCOBALAMIN 500 MCG TAB PO SCH (10:07)
[2020-10-27] MEDS: MESALAMINE 250 MG CR CAP PO SCH (10:07)
--- NOTE | 2020-10-27 10:08 | REP ---
INDICATION: SBO COMPARISON: 10/25/2020. TECHNIQUE: CT Scan of the abdomen and pelvis was performed without intravenous contrast. Sagittal and coronal reconstruction images performed. 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 Liver: Grossly unremarkable. Gallbladder: Unremarkable. Spleen: Grossly unremarkable. Adrenals: There is again left renal gland thickening noted. Pancreas: Grossly unremarkable.. Kidneys: A 1 cm calculus is again seen in the right renal pelvis. 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 Small and large bowel: Umbilical hernias again noted containing a small bowel loop which is thickened. There is diffuse edema within the hernia sac. There is mild dilatation of the more proximal small bowel which has improved and decreased in caliber compared to the prior study. There is diffuse thickening of the distal ileum with associated mesenteric edema in this region. Sigmoid diverticulosis is again noted. A nasogastric tube is seen in a collapsed stomach. There is no free air. Free fluid: There is mild free fluid in the abdomen surrounding the liver and spleen. Abdominal aorta: No aneurysm. Adenopathy: None. Appendix: Not inflamed. Osseous structures: There are degenerative changes of the spine without compression deformity.. Pelvis: No mass. Prior hysterectomy. IMPRESSION: Umbilical hernia again contains a small bowel loop, with moderate edema within the hernia sac. There is diffuse nonspecific thickening of the distal ileum. There is associated mesenteric edema in this region. There is still mild dilatation of the more proximal small bowel with this has improved since the prior study. Mild free fluid around the liver and spleen. No free air. <Electronically signed by Zackary Martins > 10/27/20 1004
[2020-10-27 14:00] VITALS: BP 109/68
[2020-10-27] MEDS: NITROFURANTOIN (MACROBID) 100 MG CAP PO SCH (18:06)
[2020-10-27] MEDS: DOCUSATE SODIUM 100MG CAPSULE PO SCH ×2 (18:06→22:11)
[2020-10-27] MEDS: IRBESARTAN 150MG TAB PO SCH (18:13)
--- NOTE | 2020-10-27 20:46 | IPNPDOC ---
Subjective Date Seen The patient was seen on 10/27/20. Subjective Chief Complaint/HPI Mrs. Randolph is a 75 year old female with Crohn's disease and history of SBO who presents with SBO. She was seen in the morning. NGT was still in place at that time. She still has abdominal tenderness, but improved abdominal pain. Objective Physical Examination General Exam: Positive: Alert, Cooperative Eye Exam: Negative: Sclera icteric ENT Exam: Positive: Other ENT (NTG in place) Neck Exam: Positive: Supple Chest Exam: Positive: Clear to auscultation Heart Exam: Positive: Rate Normal, Regular Rhythm Abdomen Exam: Positive: BS Hypoactive, Soft, Tenderness Extremity Exam: Positive: Edema (trace) Neuro Exam: Positive: Normal Speech Psych Exam: Positive: Mental status NL, Mood NL Assessment /Plan Assessment Mrs. Randolph is a 75 year old female with Crohn's disease and history of SBO who presents with SBO. General surgery following, recommendations appreciated. Continue with NGT at this time. Plan/VTE VTE Prophylaxis Ordered?: Yes Plan 1. Small bowel obstruction -Imaging demonstrated umbilical hernia continuing a loop of small bowel -General surgery following, recommendations appreciated -Continue with NTG 2. Crohn's disease -Continue with Pentasa and Nitrofurantoin x2 a week -ESR not elevated, CRP mildly elevated at 2.79, unlikely to be in flare 3. Hypertension -Continue with amlodipine and irbesartan 4. Hypothyroidism -Continue with levothyroxine 5. DVT ppx -SCD and TEDs Disposition: pending clinical improvement and general surgery recommendations VS, I&O, 24H, Eulaliobone Vital Signs/I&O Vital Signs Date Time Temp Pulse Resp B/P (MAP) Pulse Ox O2 Delivery O2 Flow Rate FiO2 10/27/20 18:13 161/81 10/27/20 14:00 98.4 83 20 91 Nasal Cannula 2.0 I&O- Last 24 Hours up to 6 AM 10/27/20 06:00 Intake Total 600 ml Output Total 1650 ml Balance -1050 ml Laboratory Data 24H LABS Laboratory Tests 2 10/27/20 06:13: Nucleated Red Blood Cells % (auto) 0.0, Erythrocyte Sedimentation Rate 6, Anion Gap 2L, Glomerular Filtration Rate > 60.0, Calcium Level 8.0L, C-Reactive Protein, Quantitative 2.79H CBC/BMP Laboratory Tests 10/27/20 06:13 HAJA AMADOR DO October 27, 2020 20:46
[2020-10-27 22:00] VITALS: BP 150/77
[2020-10-27] MEDS: ACETAMINOPHEN 500 MG TAB PO PRN (22:11)
[2020-10-27] MEDS: ASPIRIN 81MG ENTERIC TABLET PO SCH (22:11)
[2020-10-27] MEDS: FLUTICASONE PROP 0.05% NASAL SPRAY 16 GM (FLONASE) NARES SCH (22:12)
[2020-10-28] MEDS: LEVOTHYROXINE 75MCG TABLET (0.075MG) PO SCH (05:55)
[2020-10-28 06:00] VITALS: BP 166/85
[2020-10-28 06:48] LABS: HEMATOCRIT 41.5 % (36.0-47.0); HEMOGLOBIN 12.7 g/dl (12.0-15.5); MEAN CORPUSCULAR HEMOGLOBIN 29.5 pg (27.0-33.0); MEAN CORPUSCULAR HGB CONC 30.6 g/dl (32.0-36.5); MEAN CORPUSCULAR VOLUME 96.5 fl (80.0-96.0); PLATELET COUNT, AUTOMATED 199 10^3/uL (150-450); WHITE BLOOD COUNT 6.5 10^3/uL (4.0-10.0)
[2020-10-28 07:15] LABS: BLOOD UREA NITROGEN 8 MG/DL (7-18); CALCIUM LEVEL 8.4 MG/DL (8.8-10.2); CARBON DIOXIDE LEVEL 32 MEQ/L (21-32); CHLORIDE LEVEL 107 MEQ/L (98-107); CREATININE FOR GFR 0.71 MG/DL (0.55-1.30); GLOMERULAR FILTRATION RATE > 60.0 (>39); GLUCOSE, FASTING 74 MG/DL (70-100); SODIUM LEVEL 143 MEQ/L (136-145)
[2020-10-28] MEDS: PANTOPRAZOLE 40MG VIAL (C9113 PER 1) IV SCH (08:20)
[2020-10-28 08:30] VITALS: BP 130/86
[2020-10-28] MEDS: CYANOCOBALAMIN 500 MCG TAB PO SCH (10:31)
[2020-10-28] MEDS: POLYVINYL ALCOHOL OPHTH SOLN 15 ML(LIQUITEARS) OU PRN ×2 (10:40→21:13)
[2020-10-28 14:00] VITALS: BP 149/88
[2020-10-28] MEDS: NS 1,000 ML IV SCH (14:13)
--- NOTE | 2020-10-28 14:52 | IPNPDOC ---
Subjective Date Seen The patient was seen on 10/28/20. Subjective Chief Complaint/HPI Mrs. Randolph is a 75 year old female with Crohn's disease and history of SBO who presents with SBO. This morning, NGT was in place. Abdominal pain and tenderness improved. Objective Physical Examination General Exam: Positive: Alert, Cooperative Eye Exam: Negative: Sclera icteric ENT Exam: Positive: Other ENT (NTG in place) Neck Exam: Positive: Supple Chest Exam: Positive: Clear to auscultation Heart Exam: Positive: Rate Normal, Regular Rhythm Abdomen Exam: Positive: BS Hypoactive, Soft, Tenderness Extremity Exam: Positive: Edema (trace) Neuro Exam: Positive: Normal Speech Psych Exam: Positive: Mental status NL, Mood NL Assessment /Plan Assessment Mrs. Randolph is a 75 year old female with Crohn's disease and history of SBO who presents with SBO. General surgery following, recommendations appreciated. Continue with NGT at this time. Plan/VTE VTE Prophylaxis Ordered?: Yes Plan 1. Small bowel obstruction possible secondary to hernia -Imaging demonstrated umbilical hernia continuing a loop of small bowel -General surgery following, recommendations appreciated -Continue with NTG 2. Crohn's disease -Continue with Pentasa and Nitrofurantoin x2 a week -ESR not elevated, CRP mildly elevated at 2.79, unlikely to be in flare 3. Hypertension -Continue with amlodipine and irbesartan 4. Hypothyroidism -Continue with levothyroxine 5. Morbid obesity -BMI 51.8 -Complicates care 6. DVT ppx -SCD and TEDs Disposition: pending clinical improvement and general surgery recommendations VS, I&O, 24H, Fishbone Vital Signs/I&O Vital Signs Date Time Temp Pulse Resp B/P (MAP) Pulse Ox O2 Delivery O2 Flow Rate FiO2 10/28/20 10:30 68 130/86 10/28/20 08:50 2.0 10/28/20 08:30 98.2 16 96 Nasal Cannula I&O- Last 24 Hours up to 6 AM 10/28/20 06:00 Intake Total 1000 ml Output Total 1300 ml Balance -300 ml Laboratory Data 24H LABS Laboratory Tests 2 10/28/20 06:34: Nucleated Red Blood Cells % (auto) 0.0, Anion Gap 4L, Glomerular Filtration Rate > 60.0, Calcium Level 8.4L CBC/BMP Laboratory Tests 10/28/20 06:34 HAJA AMADOR DO October 28, 2020 14:52
[2020-10-28] MEDS: DOCUSATE SODIUM 100MG CAPSULE PO SCH ×2 (17:20→21:04)
[2020-10-28] MEDS: NITROFURANTOIN (MACROBID) 100 MG CAP PO SCH (17:20)
[2020-10-28] MEDS: IRBESARTAN 150MG TAB PO SCH (17:20)
[2020-10-28 20:39] VITALS: BP 179/87
[2020-10-28] MEDS: FLUTICASONE PROP 0.05% NASAL SPRAY 16 GM (FLONASE) NARES SCH (21:00)
[2020-10-28] MEDS: ACETAMINOPHEN 500 MG TAB PO PRN (21:04)
[2020-10-28] MEDS: ASPIRIN 81MG ENTERIC TABLET PO SCH (21:05)
--- NOTE | 2020-10-28 22:06 | IPNPDOC ---
Text Note Date of Service The patient was seen on 10/28/20. NOTE No acute events overnight. She did have a small BM, but her hernia is still fi rm, and NG output is high. No signs of improvement at this point. VSSAF NAD ABD - soft, TTP periumbilically only, there is a nonreducible umbilical hernia labs - below A) 75y/o female with a nonreducible umbilical hernia P) NPO NGT to OR in the AM for incarcerated umbilical hernia repair Parvez Lu DO VS,Kelly, I+O VS, Kelly, I+O Laboratory Tests 10/28/20 06:34 Vital Signs Date Time Temp Pulse Resp B/P (MAP) Pulse Ox O2 Delivery O2 Flow Rate FiO2 10/28/20 21:13 2.0 10/28/20 21:05 82 179/87 10/28/20 20:39 97.6 20 89 Room Air I&O- Last 24 Hours up to 6 AM 10/28/20 06:00 Intake Total 1000 ml Output Total 1300 ml Balance -300 ml ERICKSON LU DO October 28, 2020 22:06
[2020-10-29] VITALS (11 sets, daily range): BP systolic 144–161; BP diastolic 73–82; O2SAT 95
[2020-10-29] MEDS: NS 1,000 ML IV SCH (00:06)
[2020-10-29] MEDS: LEVOTHYROXINE 75MCG TABLET (0.075MG) PO SCH (05:21)
[2020-10-29 05:53] LABS: HEMATOCRIT 39.4 % (36.0-47.0); HEMOGLOBIN 12.1 g/dl (12.0-15.5); MEAN CORPUSCULAR HEMOGLOBIN 29.5 pg (27.0-33.0); MEAN CORPUSCULAR HGB CONC 30.7 g/dl (32.0-36.5); MEAN CORPUSCULAR VOLUME 96.1 fl (80.0-96.0); PLATELET COUNT, AUTOMATED 198 10^3/uL (150-450); WHITE BLOOD COUNT 5.6 10^3/uL (4.0-10.0)
[2020-10-29 06:11] LABS: BLOOD UREA NITROGEN 9 MG/DL (7-18); CALCIUM LEVEL 8.2 MG/DL (8.8-10.2); CARBON DIOXIDE LEVEL 31 MEQ/L (21-32); CHLORIDE LEVEL 107 MEQ/L (98-107); CREATININE FOR GFR 0.61 MG/DL (0.55-1.30); GLOMERULAR FILTRATION RATE > 60.0 (>39); GLUCOSE, FASTING 65 MG/DL (70-100); POTASSIUM SERUM 3.7 MEQ/L (3.5-5.1); SODIUM LEVEL 143 MEQ/L (136-145)
[2020-10-29] MEDS ORDERED: DEXTROSE 50% 50 ML SYRINGE IV STA (06:30)
[2020-10-29] MEDS ORDERED: SEVOFLURANE INHAL SOLN 250 ML BTL As Ordered ONE (07:04)
[2020-10-29] MEDS ORDERED: ROCURONIUM BROMIDE 50 MG/5 ML VIAL As Ordered ONE ×2 (07:11→09:04)
[2020-10-29] MEDS ORDERED: LIDOCAINE 2% 100MG/5ML SDV (FOR ANES.) As Ordered ONE (07:11)
[2020-10-29] MEDS ORDERED: propofoL 200 MG/20 ML VIAL As Ordered ONE ×2 (07:11→09:15)
[2020-10-29] MEDS ORDERED: fentaNYL 100 MCG/2 ML INJECTION (J3010) As Ordered ONE ×2 (07:12→08:04)
[2020-10-29] MEDS ORDERED: dexameTHASONE 4 MG/ML 1ML VIAL (J1100 PER 1MG) As Ordered ONE (07:12)
[2020-10-29] MEDS ORDERED: ONDANSETRON 4MG/2ML VIAL As Ordered ONE (07:12)
[2020-10-29] MEDS ORDERED: MIDAZOLAM INJ 2MG/2ML VIAL (J2250 PER 1MG) As Ordered ONE (07:12)
[2020-10-29] MEDS ORDERED: BUPIVACAINE/EPIN 0.25% 30 ML VIAL As Ordered ONE (07:17)
--- NOTE | 2020-10-29 07:23 | IPNPDOC ---
Text Note Date of Service The patient was seen on 10/29/20. NOTE No acute events overnight. She did have a small BM, but her hernia is still fi rm. Plan is for OR this am for hernia repair. No changes to H+P. VSSAF NAD ABD - soft, TTP periumbilically only, there is a nonreducible umbilical hernia labs - below A) 75y/o female with a nonreducible umbilical hernia P) NPO NGT to OR for robotic incarcerated umbilical hernia repair. Parvez Lu DO VS,Kelly, I+O VS, Kelly, I+O Laboratory Tests 10/29/20 05:27 Vital Signs Date Time Temp Pulse Resp B/P (MAP) Pulse Ox O2 Delivery O2 Flow Rate FiO2 10/29/20 05:24 97.8 67 18 152/73 (99) 99 Room Air 10/28/20 21:13 2.0 I&O- Last 24 Hours up to 6 AM 10/29/20 06:00 Intake Total 1000 ml Output Total 1500 ml Balance -500 ml ERICKSON LU DO October 29, 2020 07:23
[2020-10-29] MEDS ORDERED: ceFAZolin 2 GM/D5W 50 ML IV BAG (J0690 PER 500MG) As Ordered ONE (07:37)
[2020-10-29] MEDS ORDERED: ACETAMINOPHEN 1000MG 100ML IV BTL (OFIRMEV) (J0131 PER 10MG) As Ordered ONE (09:12)
[2020-10-29] MEDS ORDERED: SUGAMMADEX SODIUM 500 MG/5 ML VIAL (BRIDION) As Ordered ONE (09:12)
[2020-10-29] MEDS ORDERED: ALBUTEROL 6.7GM INHALER **FOR ANES. CART/OMNICELL ONLY As Ordered ONE (09:54)
[2020-10-29] MEDS ORDERED: ONDANSETRON 4MG/2ML VIAL IV PRN (10:00)
[2020-10-29] MEDS ORDERED: HYDROMORPHONE HCL 0.5 MG/ 0.5 ML SYRINGE (J1170 PER 1) IV PRN (10:00)
[2020-10-29] MEDS ORDERED: oxyCODONE 5MG TAB PO PRN (10:00)
[2020-10-29] MEDS ORDERED: LR 1,000 ML IV SCH (10:00)
[2020-10-29] MEDS ORDERED: METOCLOPRAMIDE INJ 10MG/2ML VIAL (J2765 PER 1) IV PRN (10:00)
[2020-10-29] MEDS ORDERED: fentaNYL 100 MCG/2 ML INJECTION (J3010) IV PRN (10:00)
[2020-10-29] MEDS: CYANOCOBALAMIN 500 MCG TAB PO SCH (11:15)
[2020-10-29] MEDS: PANTOPRAZOLE 40MG VIAL (C9113 PER 1) IV SCH (11:15)
[2020-10-29] MEDS: MESALAMINE 250 MG CR CAP PO SCH (11:21)
--- NOTE | 2020-10-29 13:40 | RO ---
OPERATIVE NOTE DATE OF OPERATION: PREOPERATIVE DIAGNOSIS: Incarcerated umbilical hernia. POSTOPERATIVE DIAGNOSIS: Incarcerated umbilical hernia. PROCEDURE: Robotic incarcerated umbilical hernia repair with lysis of adhesions. SURGEON: Zackary Lu MD DROP BOARD WORKER: Renetta Hart NP ANESTHESIA: General. EBL: 20 mL. COMPLICATIONS: None. INDICATION FOR PROCEDURE: The patient is a 75-year-old female who presents with periumbilical pain and signs of a small bowel obstruction. She has been decompressed for the past four or five days with an NG tube. The hernia has not relieved itself of the obstruction so recommendation was to proceed with surgery. Risks and benefits of the procedure not limited to but including bleeding, infection, hernia recurrence, hernia formation, damage to surrounding structures, and need for further surgery were discussed in detail with the patient, informed consent was obtained and procedure was planned. DESCRIPTION OF PROCEDURE: PREOPERATIVE DIAGNOSIS: Incarcerated umbilical hernia. POSTOPERATIVE DIAGNOSIS: Incarcerated umbilical hernia. PROCEDURE: Robotic repair of incarcerated umbilical hernia repair. SURGEON: Zackary Lu DO ASSIST: Renetta Hart ANESTHESIA: General. EBL: 5. COMPLICATIONS: None. INDICATIONS FOR PROCEDURE: The patient is a 28-year-old female who presents with periumbilical pain, found to have a very small incarcerated umbilical hernia. Recommendation was to proceed with robotic repair. Risks and benefits of the procedure not limited to but including bleeding, infection, hernia recurrence, hernia formation, damage to surrounding structures, need for further surgery were discussed in detail with the patient. Informed consent was obtained and procedure was planned. PROCEDURE: The patient was brought back to operating room #7. After sufficient sedation a Walsh catheter was placed. Next a time-out was done to confirm proper patient, proper procedure. Following that, an 8 mm incision was made in the left upper quadrant and Veress needle was inserted, and the abdomen was insufflated to 15 mmHg. Veress needle was then removed and an 8 mm Optiview port was used to gain access to the abdomen. Once the abdomen was entered, two more 8 mm ports were placed, one subxiphoid and one in the right upper quadrant. Next, the abdomen was examined. Adhesions were taken down circumferentially around the hernia sac from the omentum to the abdominal wall. Next, the hernia sac was dissected free circumferentially. A loop of small intestine was densely adhered to the abdominal wall and within the hernia sac. After careful dissection circumferentially I was able to free up the entire loop of bowel that was stuck. No signs of any obvious injuries were created during that process. The hernia sac was also dissected free. Once the hernia sac was completely dissected free, the peritoneum was then freed up circumferentially revealing two smaller defects about a cm in size just to the left side of the larger 4 cm defect. Once this area was all freed up, an #0 Stratafix suture was used to approximate the fascia and close all three of the hernia defects. Once that was completed the peritoneum was closed over the top of the defects again using a 2-0 V-Loc suture. Once this was completed, the omentum was dissected free from the loop of bowel that was stuck up within the hernia sac just to reduce the chance of that turning into an incarceration later on. The abdomen was examined one last time. The abdomen was then desufflated, ports were removed. Skin incisions were closed with 4-0 Vicryl subcuticular sutures. The abdomen was cleaned and dried. Steri-Strips, 4 x 4 and tape were applied. This ended the procedure. ARLENE
[2020-10-29] MEDS ORDERED: KETOROLAC 30 MG/ML 1ML VIAL IV PRN (15:05)
[2020-10-29] MEDS ORDERED: NORCO, ANEXSIA 5/325MG TABLET (HYDROcodone/ACETAMINOPHEN) PO PRN (15:05)
--- NOTE | 2020-10-29 15:37 | IPNPDOC ---
Subjective Date Seen The patient was seen on 10/29/20. Subjective Chief Complaint/HPI Mrs. Randolph is a 75 year old female with Crohn's disease and history of SBO who presents with SBO. She was seen this afternoon after surgery. NGT has been removed and she is feeling better. She reports sore throat and feels like she has phlegm stuck to her throat. Will try guaifenesin. Objective Physical Examination General Exam: Positive: Alert, Cooperative Eye Exam: Negative: Sclera icteric ENT Exam: Positive: Other ENT (NTG in place) Neck Exam: Positive: Supple Chest Exam: Positive: Clear to auscultation Heart Exam: Positive: Rate Normal, Regular Rhythm Abdomen Exam: Positive: BS Hypoactive, Soft, Tenderness Extremity Exam: Positive: Edema (trace) Neuro Exam: Positive: Normal Speech Psych Exam: Positive: Mental status NL, Mood NL Assessment /Plan Assessment Mrs. Randolph is a 75 year old female with Crohn's disease and history of SBO who presents with SBO. General surgery following, recommendations appreciated. Patient was taken to the OR for incarcerated umbilical hernia repair and lysis of adhesions on 10/29/20. Plan/VTE VTE Prophylaxis Ordered?: Yes Plan 1. Small bowel obstruction secondary to incarcerated umbilical hernia -Imaging demonstrated umbilical hernia continuing a loop of small bowel -General surgery following, recommendations appreciated -Patient taken to the OR for incarcerated umbilical hernia repair and lysis of adhesions on 10/29/20. 2. Crohn's disease -Continue with Pentasa and Nitrofurantoin x2 a week -ESR not elevated, CRP mildly elevated at 2.79, unlikely to be in flare 3. Hypertension -Continue with amlodipine and irbesartan 4. Hypothyroidism -Continue with levothyroxine 5. Morbid obesity -BMI 51.8 -Complicates care 6. DVT ppx -SCD and TEDs Disposition: pending clinical improvement and general surgery recommendations VS, I&O, 24H, Fishbone Vital Signs/I&O Vital Signs Date Time Temp Pulse Resp B/P (MAP) Pulse Ox O2 Delivery O2 Flow Rate FiO2 10/29/20 14:45 97.8 80 19 149/82 (104) 95 Nasal Cannula 2.0 I&O- Last 24 Hours up to 6 AM 10/29/20 06:00 Intake Total 1000 ml Output Total 1500 ml Balance -500 ml Laboratory Data 24H LABS Laboratory Tests 2 10/29/20 05:27: Nucleated Red Blood Cells % (auto) 0.0, Anion Gap 5L, Glomerular Filtration Rate > 60.0, Calcium Level 8.2L CBC/BMP Laboratory Tests 10/29/20 05:27 HAJA AMADOR DO October 29, 2020 15:37
[2020-10-29] MEDS: guaiFENesin ER 600 MG TAB PO SCH ×2 (15:56→21:04)
[2020-10-29] MEDS: DOCUSATE SODIUM 100MG CAPSULE PO SCH ×2 (18:11→21:04)
[2020-10-29] MEDS: IRBESARTAN 150MG TAB PO SCH (18:12)
[2020-10-29] MEDS ORDERED: guaiFENesin ER 600 MG TAB PO SCH (21:00)
[2020-10-29] MEDS: FLUTICASONE PROP 0.05% NASAL SPRAY 16 GM (FLONASE) NARES SCH (21:00)
[2020-10-29] MEDS: ASPIRIN 81MG ENTERIC TABLET PO SCH (21:04)
[2020-10-30] VITALS (10 sets, daily range): BP systolic 117–159; BP diastolic 61–85; O2SAT 92–95
[2020-10-30] MEDS: LEVOTHYROXINE 75MCG TABLET (0.075MG) PO SCH (05:18)
[2020-10-30] MEDS: POLYVINYL ALCOHOL OPHTH SOLN 15 ML(LIQUITEARS) OU PRN (05:19)
[2020-10-30 06:06] LABS: HEMATOCRIT 38.8 % (36.0-47.0); HEMOGLOBIN 12.3 g/dl (12.0-15.5); MEAN CORPUSCULAR HEMOGLOBIN 30.1 pg (27.0-33.0); MEAN CORPUSCULAR HGB CONC 31.7 g/dl (32.0-36.5); MEAN CORPUSCULAR VOLUME 94.9 fl (80.0-96.0); PLATELET COUNT, AUTOMATED 201 10^3/uL (150-450); RED BLOOD COUNT 4.09 10^6/uL (4.00-5.40); WHITE BLOOD COUNT 7.2 10^3/uL (4.0-10.0)
[2020-10-30 06:29] LABS: BLOOD UREA NITROGEN 10 MG/DL (7-18); CALCIUM LEVEL 8.6 MG/DL (8.8-10.2); CARBON DIOXIDE LEVEL 32 MEQ/L (21-32); CHLORIDE LEVEL 106 MEQ/L (98-107); CREATININE FOR GFR 0.71 MG/DL (0.55-1.30); GLOMERULAR FILTRATION RATE > 60.0 (>39); GLUCOSE, FASTING 81 MG/DL (70-100); POTASSIUM SERUM 3.6 MEQ/L (3.5-5.1); SODIUM LEVEL 142 MEQ/L (136-145)
[2020-10-30] MEDS: PANTOPRAZOLE 40MG VIAL (C9113 PER 1) IV SCH (09:11)
[2020-10-30] MEDS: CYANOCOBALAMIN 500 MCG TAB PO SCH (09:25)
[2020-10-30] MEDS: guaiFENesin ER 600 MG TAB PO SCH ×2 (09:25→20:08)
[2020-10-30] MEDS ORDERED: MIRALAX *UNIT DOSE* 17GM PACKET PO PRN (11:40)
--- NOTE | 2020-10-30 11:48 | IPNPDOC ---
Subjective Date Seen The patient was seen on 10/30/20. Subjective Chief Complaint/HPI Mrs. Randolph is a 75 year old female with Crohn's disease and history of SBO who presents with SBO 2/2 incarcerated umbilical hernia. This morning. she was doing well. She is tolerating a clear liquid diet and was hoping to have something more. Otherwise, no nausea. She has some soreness in the area of her hernia. No bowel movements at this time. Will try to advance her diet and add on to her bowel regimen. Objective Physical Examination General Exam: Positive: Alert, Cooperative Eye Exam: Negative: Sclera icteric ENT Exam: Positive: Other ENT (NTG in place) Neck Exam: Positive: Supple Chest Exam: Positive: Clear to auscultation Heart Exam: Positive: Rate Normal, Regular Rhythm Abdomen Exam: Positive: BS Hypoactive, Soft, Tenderness Extremity Exam: Positive: Edema (trace) Neuro Exam: Positive: Normal Speech Psych Exam: Positive: Mental status NL, Mood NL Assessment /Plan Assessment Mrs. Randolph is a 75 year old female with Crohn's disease and history of SBO who presents with SBO. General surgery following, recommendations appreciated. Patient was taken to the OR for incarcerated umbilical hernia repair and lysis of adhesions on 10/29/20. Plan/VTE VTE Prophylaxis Ordered?: Yes Plan 1. Small bowel obstruction secondary to incarcerated umbilical hernia -Imaging demonstrated umbilical hernia continuing a loop of small bowel -General surgery following, recommendations appreciated -Patient taken to the OR for incarcerated umbilical hernia repair and lysis of adhesions on 10/29/20. 2. Crohn's disease -Continue with Pentasa and Nitrofurantoin x2 a week -ESR not elevated, CRP mildly elevated at 2.79, unlikely to be in flare 3. Hypertension -Continue with amlodipine and irbesartan 4. Hypothyroidism -Continue with levothyroxine 5. Morbid obesity -BMI 51.8 -Complicates care 6. DVT ppx -SCD and TEDs Disposition: Pending clinical improvement and general surgery recommendations VS, I&O, 24H, Fishbone Vital Signs/I&O Vital Signs Date Time Temp Pulse Resp B/P (MAP) Pulse Ox O2 Delivery O2 Flow Rate FiO2 10/30/20 10:00 97.9 57 19 137/67 (90) 93 Nasal Cannula 2.0 I&O- Last 24 Hours up to 6 AM 10/30/20 06:00 Intake Total 2810 ml Output Total 445 ml Balance 2365 ml Laboratory Data 24H LABS Laboratory Tests 2 10/30/20 05:40: Nucleated Red Blood Cells % (auto) 0.0, Anion Gap 4L, Glomerular Filtration Rate > 60.0, Calcium Level 8.6L CBC/BMP Laboratory Tests 10/30/20 05:40 HAJA AMADOR DO October 30, 2020 11:48
--- NOTE | 2020-10-30 14:02 | IPNPDOC ---
Text Note Date of Service The patient was seen on 10/30/20. NOTE Patient seen sitting up on the bed. She has had 2 liquid meals today and denies any increased nausea nor vomiting. She reports passing flatus, no bowel movements yet. Denies any severe abdominal discomfort save for soreness around the umbilicus. Vital signs stable. On examination She looks comfortable Speech is normal Lung sounds are clear to auscultation bilaterally Heart rate and rhythm regular Abdomen is morbidly obese, protuberant patient is still has some prominent soft distention on the upper abdomen so the midabdomen. She has 3 port sites with dressings clean dry and intact. Mild tenderness around the umbilicus. Impression and plan Postop day 1 robotic-assisted laparoscopic reduction of incarcerated small bowel loop inside an umbilical hernia, primary repair of the hernia Okay to gradually proceed diet. She is on full liquids now. May advance as tolerated. Ambulate the hallways Incentive spirometer. VS,Fishbone, I+O VS, Fishbone, I+O Laboratory Tests 10/30/20 05:40 Vital Signs Date Time Temp Pulse Resp B/P (MAP) Pulse Ox O2 Delivery O2 Flow Rate FiO2 10/30/20 10:00 97.9 57 19 137/67 (90) 93 Nasal Cannula 2.0 I&O- Last 24 Hours up to 6 AM 10/30/20 06:00 Intake Total 2810 ml Output Total 445 ml Balance 2365 ml SHANI SAENZ MD October 30, 2020 14:02
[2020-10-30] MEDS: ACETAMINOPHEN 500 MG TAB PO PRN ×2 (16:08→20:08)
[2020-10-30] MEDS: DOCUSATE SODIUM 100MG CAPSULE PO SCH ×2 (17:15→20:08)
[2020-10-30] MEDS: IRBESARTAN 150MG TAB PO SCH (17:18)
[2020-10-30] MEDS: ASPIRIN 81MG ENTERIC TABLET PO SCH (20:08)
[2020-10-30] MEDS: FLUTICASONE PROP 0.05% NASAL SPRAY 16 GM (FLONASE) NARES SCH (20:08)
[2020-10-31] MEDS ORDERED: PILL CUTTER 1 EACH XX PRN (02:25)
[2020-10-31] MEDS: ACETAMINOPHEN 500 MG TAB PO PRN (05:18)
[2020-10-31] MEDS: LEVOTHYROXINE 75MCG TABLET (0.075MG) PO SCH (05:18)
[2020-10-31 05:55] LABS: HEMOGLOBIN 12.7 g/dl (12.0-15.5); MEAN CORPUSCULAR HEMOGLOBIN 29.7 pg (27.0-33.0); PLATELET COUNT, AUTOMATED 216 10^3/uL (150-450); RED BLOOD COUNT 4.27 10^6/uL (4.00-5.40); WHITE BLOOD COUNT 6.1 10^3/uL (4.0-10.0)
[2020-10-31 06:00] VITALS: BP 141/78
[2020-10-31 06:16] LABS: BLOOD UREA NITROGEN 10 MG/DL (7-18); CALCIUM LEVEL 8.5 MG/DL (8.8-10.2); CARBON DIOXIDE LEVEL 33 MEQ/L (21-32); CHLORIDE LEVEL 106 MEQ/L (98-107); GLOMERULAR FILTRATION RATE > 60.0 (>39); GLUCOSE, FASTING 99 MG/DL (70-100); POTASSIUM SERUM 3.4 MEQ/L (3.5-5.1); SODIUM LEVEL 143 MEQ/L (136-145)
[2020-10-31] MEDS ORDERED: POTASSIUM CHLORIDE 10 MEQ SR TABLET PO ONE (09:00)
[2020-10-31] MEDS: MESALAMINE 250 MG CR CAP PO SCH (10:10)
[2020-10-31] MEDS: NITROFURANTOIN (MACROBID) 100 MG CAP PO SCH (10:10)
[2020-10-31] MEDS: guaiFENesin ER 600 MG TAB PO SCH (10:11)
[2020-10-31] MEDS: CYANOCOBALAMIN 500 MCG TAB PO SCH (10:11)
[2020-10-31 10:13] VITALS: BP 151/79
[2020-10-31] MEDS: PANTOPRAZOLE 40MG VIAL (C9113 PER 1) IV SCH (10:13)
[2020-10-31] MEDS ORDERED: MUCI600T31 PO (10:19)
--- NOTE | 2020-10-31 22:39 | DS.PDOC ---
Discharge Summary General Date of Admission October 25, 2020 at 17:05 Date of Discharge October 31, 2020 Discharge Summary PROCEDURES PERFORMED DURING STAY: [None]. ADMITTING DIAGNOSES: 1. . DISCHARGE DIAGNOSES: 1. . COMPLICATIONS/CHIEF COMPLAINT: Sbo (Small Bowel Obstruction). HISTORY OF PRESENT ILLNESS: . HOSPITAL COURSE: . DISCHARGE MEDICATIONS: Please see below. ALLERGIES: Please see below. PHYSICAL EXAMINATION ON DISCHARGE: VITAL SIGNS: Please see below. GENERAL: HEENT: NECK: CARDIOVASCULAR EXAMINATION: RESPIRATORY EXAMINATION: ABDOMINAL EXAMINATION: EXTREMITIES: SKIN: NEUROLOGICAL EXAMINATION: PSYCHIATRIC EXAMINATION: LABORATORY DATA: Please see below. IMAGING: PROGNOSIS: ACTIVITY: [As tolerated]. DIET: DISCHARGE PLAN: DISPOSITION: 06 Home Health Service. DISCHARGE INSTRUCTIONS: 1. . ITEMS TO FOLLOWUP ON ON OUTPATIENT: 1. . DISCHARGE CONDITION: [Stable]. TIME SPENT ON DISCHARGE: Greater than minutes. Vital Signs/I&Os Vital Signs Date Time Temp Pulse Resp B/P (MAP) Pulse Ox O2 Delivery O2 Flow Rate FiO2 10/31/20 10:13 72 151/79 10/31/20 06:00 98.3 18 97 Nasal Cannula 2.0 I&O- Last 24 Hours up to 6 AM 10/31/20 06:00 Intake Total 1720 ml Output Total 0 ml Balance 1720 ml Laboratory Data Labs 24H Laboratory Tests 2 10/31/20 05:36: Nucleated Red Blood Cells % (auto) 0.0, Anion Gap 4L, Glomerular Filtration Rate > 60.0, Calcium Level 8.5L, Magnesium Level 2.0 CBC/BMP Laboratory Tests 10/31/20 05:36 Discharge Medications Scheduled Amlodipine Besylate (Amlodipine Besylate) 2.5 Mg Tablet, 2.5 MG PO BID, (Reported) Aspirin (Aspirin EC) 81 Mg Tablet.dr, 81 MG PO QHS, (Reported) Cranberry (Cranberry) 400 Mg Capsule, 400 MG PO BID, (Reported) Cyanocobalamin (Vitamin B-12) (B-12) 500 Mcg Tablet, 500 MCG PO DAILY, (Reported) Docusate Sodium (Docusate Sodium) 100 Mg Capsule, 200 MG PO BID, (Reported) supper and bedtime Fluticasone Propionate (Flonase Allergy Relief) 9.9 Ml [place].susp, 1 SPRAY [place]ARES QHS, (Reported) Guaifenesin (Mucinex) 600 Mg Tab.er.12h, 600 MG PO BID Irbesartan (Irbesartan) 150 Mg Tablet, 150 MG PO QPM, (Reported) Lactobacillus Acidophilus (Probiotic) 1 Each Capsule, 1 CAP PO DAILY, (Reported) Levothyroxine Sodium (Levothyroxine Sodium) 75 Mcg Tablet, 75 MCG PO QAM, (Reported) Mesalamine (Pentasa) 500 Mg Capsule.er, 500 MG PO 3XW, (Reported) sun,sun,sun Nitrofurantoin Monohyd/M-Cryst (Nitrofurantoin Gilchrist-Mcr 100 mg) 100 Mg Capsule, 100 MG PO 2XW, (Reported) sun, Scheduled PRN Acetaminophen (Acetaminophen) 500 Mg Tablet, 1,000 MG PO BID PRN for PAIN, (Reported) Polyvinyl Alcohol (Artificial Tears) 15 Ml Drops, 1 DROP OU QID PRN for DRY EYES, (Reported) Allergies Coded Allergies: TAPE (Verified Allergy, Intermediate, BREAKS OUT, 08/04/05) HAJA AMADOR DO October 31, 2020 22:39
== END 2020-10-31 13:05 | disposition home health service (06) | DRG 354 ==
LOC: EDBD 10:53 → M ED 10:53 → M ED INP 17:05 → ENRESERV 10-26 11:22 → M MS5PR 10-26 12:50
PROVIDERS: ADMIT Internal Medicine; ATTEND Internal Medicine
PROC: 8E0W4CZ Robotic Assisted Procedure of Trunk Region, Percutaneous Endoscopic Approach (ICD-10-PCS; 2020-10-29)
PROC: 0WQF4ZZ Repair Abdominal Wall, Percutaneous Endoscopic Approach (ICD-10-PCS; principal; 2020-10-29 07:30)
DX: K42.0 Umbilical hernia with obstruction, without gangrene (principal); K50.90 Crohn's disease, unspecified, without complications; Z68.43 Body mass index [BMI] 50.0-59.9, adult; I10 Essential (primary) hypertension; E66.01 Morbid (severe) obesity due to excess calories; E03.9 Hypothyroidism, unspecified; Z79.899 Other long term (current) drug therapy; Z79.82 Long term (current) use of aspirin; K57.30 Diverticulosis of large intestine without perforation or abscess without bleeding; Z87.891 Personal history of nicotine dependence

== ENCOUNTER → 2022-12-28 | Outpatient (CLI) | payer MEDICARE ==
[~2022-12-28] MED LIST changes: +ARTIDRO4 OU; +FLON1SPR NARES; +MUCI600T31 PO
[2022-12-28 11:50] LABS: HEMATOCRIT 40.6 % (36.0-47.0); HEMOGLOBIN 12.9 g/dl (12.0-15.5); MEAN CORPUSCULAR HEMOGLOBIN 29.7 pg (27.0-33.0); MEAN CORPUSCULAR HGB CONC 31.8 g/dl (32.0-36.5); MEAN CORPUSCULAR VOLUME 93.3 fl (80.0-96.0); PLATELET COUNT, AUTOMATED 246 10^3/uL (150-450); RED BLOOD COUNT 4.35 10^6/uL (4.00-5.40); WHITE BLOOD COUNT 6.3 10^3/uL (4.0-10.0)
[2022-12-28 12:05] LABS: TOTAL IRON BINDING CAPACITY 398 UG/DL (250-425)
[2022-12-28 12:06] LABS: ALBUMIN 3.8 G/DL (3.2-5.2); ALKALINE PHOSPHATASE 92 U/L (46-116); ALT/SGPT 13 U/L (7.0-40); AST/SGOT 21 U/L (<34); BILIRUBIN,TOTAL 0.9 MG/DL (0.3-1.2); BLOOD UREA NITROGEN 16 MG/DL (9-23); CALCIUM LEVEL 8.5 MG/DL (8.3-10.6); CARBON DIOXIDE LEVEL 33 MMOL/L (20-31); CHLORIDE LEVEL 104 MMOL/L (98-107); CHOLESTEROL LEVEL 162 MG/DL (<200); CHOLESTEROL RISK RATIO 2.28 (<5); CREATININE FOR GFR 0.89 MG/DL (0.55-1.30); GLOMERULAR FILTRATION RATE > 60.0 (>39); GLUCOSE, FASTING 93 MG/DL (74-106); IRON (FE) 58 UG/DL (50-170); LDL CHOLESTEROL 76.6 MG/DL (<100); PERCENT SATURATION 14.6 % (13.2-45.0); POTASSIUM SERUM 4.4 MMOL/L (3.5-5.1); SODIUM LEVEL 140 MMOL/L (136-145); TOTAL PROTEIN 6.4 G/DL (5.7-8.2); TRIGLYCERIDES LEVEL 72 MG/DL (<150)
[2022-12-28 12:12] LABS: THYROID STIMULATING HORMONE 2.621 uIU/ML (0.55-4.78)
[2022-12-28 12:24] LABS: HEMOGLOBIN A1c 5.2 % (4.0-6.0)
== END ==
LOC: M WUC 10:11
PROVIDERS: ATTEND Family Medicine
DX: I10 Essential (primary) hypertension (principal); R53.83 Other fatigue; E03.9 Hypothyroidism, unspecified; Z79.899 Other long term (current) drug therapy